=== PATIENT | male | born 1995 | race African-American/Black ===

== ENCOUNTER 2017-04-25 00:16 | Emergency (ER) | payer OTHER ==
[2017-04-25 01:08] LABS: APPEARANCE,URINE CLEAR; BILIRUBIN,URINE NEGATIVE (NEGATIVE); COLOR,URINE YELLOW; GLUCOSE, URINE NEGATIVE (NEGATIVE); KETONES,URINE NEGATIVE (NEGATIVE); LEUKOCYTE ESTERASE,URINE SMALL (NEGATIVE); NITRITE,URINE NEGATIVE (NEGATIVE); PROTEIN,URINE NEGATIVE (NEGATIVE); URINE SPECIFIC GRAVITY 1.013; UROBILINOGEN,URINE NEGATIVE mg/dL (<2.0)
--- NOTE | 2017-04-25 01:09 | ER Document Report ---
ED General - General Chief Complaint: Urinary Problem Stated Complaint: BLOOD IN URINE Time Seen by Provider: 04/25/17 00:54 Mode of Arrival: Ambulatory Information source: Patient Notes: 21-year-old male with no reported past medical history presents with complaint of blood in his urine. Patient states that just prior to arrival he was urinating when he noticed a small amount of blood in his urine. He denies prior similar symptoms, Penile discharge, foreign body into the penis, trauma to the area. He has had associated dysuria that started today. He denies any fever, chills, nausea, vomiting, abdominal pain or back pain. He is sexually active with one partner and uses condoms. He does have a history of chlamydia which was treated approximately 8 months ago. - HPI Onset: Just prior to arrival Onset/Duration: Sudden Quality of pain: No pain Severity: None Associated symptoms: None Exacerbated by: Denies Relieved by: Denies Similar symptoms previously: No - Related Data Allergies/Adverse Reactions: No Known Allergies Allergy (Unverified 04/25/17 00:17) Past Medical History - General Information source: Patient - Social History Smoking Status: Never Smoker Frequency of alcohol use: None Drug Abuse: None Lives with: Family Family History: None, Reviewed & Not Pertinent Patient has suicidal ideation: No Patient has homicidal ideation: No - Medical History Medical History: Negative Review of Systems - Review of Systems Constitutional: denies: Chills, Fever EENT: No symptoms reported Cardiovascular: No symptoms reported Respiratory: No symptoms reported Gastrointestinal: denies: Abdominal pain, Diarrhea, Nausea Genitourinary: Dysuria, Hematuria. denies: Frequency, Flank pain, Urgency, Retention Male Genitourinary: denies: Testicular pain, Penile discharge Physical Exam - Genitourinary Tenderness: Nontender Cremasteric reflex: Normal Scrotum: Normal Notes: No blood at the meatus. No penile discharge. No testicular swelling or pain. - Back Back: Normal, Nontender. No: CVA tenderness Course - Re-evaluation Re-evalutation: 04/25/17 01:08 29-year-old healthy male presents with concern of blood in his urine that he saw just prior to arrival. He denies prior similar symptoms. Upon arrival vital signs were reviewed and within normal limits. Patient is in no acute distress. Urinalysis was obtained and - Laboratory Laboratory results interpreted by me: 04/25/17 00:42 Ur Leukocyte Esterase SMALL H Discharge - Discharge Clinical Impression: UTI (urinary tract infection) Condition: Good Disposition: HOME, SELF-CARE Instructions: Urinary Tract Infection ([facility]) Prescriptions: Ciprofloxacin HCl [Cipro 500 mg Tablet] 500 mg PO BID 7 Days #14 tablet Referrals: ERIK BIRMINGHAM DO [Primary Care Provider] - Follow up as needed
[2017-04-25] MEDS ORDERED: CIPROFLOXACIN HCL 500 MG TABLET PO ONE (01:49)
[2017-04-25 02:46] VITALS: BP 119/51
[2017-04-25 03:38] LABS: CHLAM PCR DETECTED (NOT DETECT); GON PCR DETECTED (NOT DETECT)
== END 2017-04-25 02:45 | disposition home or self-care (01) ==
LOC: ER 00:16
DX: N39.0 Urinary tract infection, site not specified (principal); R31.9 Hematuria, unspecified; R30.0 Dysuria; Z86.19 Personal history of other infectious and parasitic diseases
CPT/HCPCS: 81001; 87491; 87591; 99283

== ENCOUNTER 2017-11-28 14:37 | Emergency (ER) | payer OTHER ==
[2017-11-28 14:45] VITALS: BP 127/69
--- NOTE | 2017-11-28 15:35 | ER Document Report ---
HPI - HPI Patient complains to provider of: gonorrhea and chlamydia exposure Onset: Just prior to arrival Quality of pain: No pain Pain Level: Denies Context: Patient reports to the ED with reports of gonorrhe and chlamydia exposure. Reports his partner just notified him 1 hour ago. He denies symptoms. Denies pain with void. Denies testicular pain. No complaints of fever vomiting diarrhea. Denies abdominal pain. Associated Symptoms: None Exacerbated by: Denies Relieved by: Denies Similar symptoms previously: No Recently seen / treated by doctor: No Past Medical History - General Information source: Patient - Social History Smoking Status: Unknown if Ever Smoked Cigarette use (# per day): No Frequency of alcohol use: Occasional Drug Abuse: None Family History: None, Reviewed & Not Pertinent Patient has suicidal ideation: No Patient has homicidal ideation: No - Medical History Medical History: Negative Renal/ Medical History: Denies: Hx Peritoneal Dialysis Surgical Hx: Negative Vertical Provider Document - CONSTITUTIONAL Agree With Documented VS: Yes Exam Limitations: No Limitations General Appearance: WD/WN, No Apparent Distress - INFECTION CONTROL TRAVEL OUTSIDE OF THE [place] IN LAST 30 DAYS: No - HEENT HEENT: Atraumatic, Normocephalic - NECK Neck: Supple - RESPIRATORY Respiratory: No Respiratory Distress - CARDIOVASCULAR Cardiovascular: Regular Rate - GI/ABDOMEN Gastrointestinal: Abdomen Soft, Abdomen Non-Tender - MUSCULOSKELETAL/EXTREMETIES Musculoskeletal/Extremeties: MARLENY HI - NEURO Level of Consciousness: Awake, Alert, Appropriate Motor/Sensory: No Motor Deficit - DERM Integumentary: Warm, Dry Course - Re-evaluation Re-evalutation: 11/28/17 16:24 Patient was given the option of waiting for results or being treated for gonorrhea and chlamydia. He requested to be treated for gonorrhea & chlamydia. He was given phone numbers that he can call either today or Friday to find out what the results were. He was also educated on the importance of protection when he had intercourse. He verbalized understanding to all information. Dictation of this chart was performed using voice recognition software; therefore, there may be some unintended grammatical errors. - Vital Signs Vital signs: Temp Pulse Resp BP Pulse Ox 98.2 F 59 L 18 127/69 H 100 11/28/17 14:42 11/28/17 14:42 11/28/17 14:42 11/28/17 14:42 11/28/17 14:42 Discharge - Discharge Clinical Impression: gonorrhea and chlamydia exposure Condition: Stable Disposition: HOME, SELF-CARE Instructions: Azithromycin ([facility]), Chlamydia ([facility]), Gonorrhea ([facility]), [facility], Rocephin ([facility]) Additional Instructions: *You have been used for exposure to gonorrhea and chlamydia *Your if received a dose of Zithromax and an injection of Rocephin *Contact pad at [phone] after 4 hours for results of your test or contact the culture nurse at [phone] on Friday for your results. *Follow up with your primary care provider for recheck within one week *Use protection during intercourse *Return to ED for worsening condition, changes, needs Forms: Elevated Blood Pressure, Return to Work Referrals: ERIK BIRMINGHAM DO [Primary Care Provider] - Follow up in 1 week
[2017-11-28] MEDS ORDERED: AZITHROMYCIN 250 MG TABLET PO ONE (16:03)
[2017-11-28] MEDS ORDERED: CEFTRIAXONE INJ 250 MG VIAL IM ONE (16:03)
[2017-11-28] MEDS ORDERED: LIDOCAINE 1% INJ-PF (10 MG/ML) 30 ML SDV INFIL ONE (16:03)
[2017-11-28 16:26] LABS: APPEARANCE,URINE CLEAR; BILIRUBIN,URINE NEGATIVE (NEGATIVE); COLOR,URINE YELLOW; GLUCOSE, URINE NEGATIVE (NEGATIVE); KETONES,URINE NEGATIVE (NEGATIVE); LEUKOCYTE ESTERASE,URINE NEGATIVE (NEGATIVE); NITRITE,URINE NEGATIVE (NEGATIVE); PROTEIN,URINE NEGATIVE (NEGATIVE); URINE SPECIFIC GRAVITY 1.014; UROBILINOGEN,URINE NEGATIVE mg/dL (<2.0)
[2017-11-28 17:50] LABS: CHLAM PCR DETECTED (NOT DETECT); GON PCR DETECTED (NOT DETECT)
== END 2017-11-28 16:26 | disposition home or self-care (01) ==
LOC: ER 14:37
DX: Z20.2 Contact with and (suspected) exposure to infections with a predominantly sexual mode of transmission (principal)
CPT/HCPCS: 99283; 96372; 81001; 87491; 87591; J3490; J0696

== ENCOUNTER 2018-03-07 13:07 | Emergency (ER) | payer OTHER ==
[2018-03-07] MEDS ORDERED: CEFTRIAXONE INJ 1000 MG VIAL IM ONE (13:41)
[2018-03-07] MEDS ORDERED: LIDOCAINE 1% INJ-PF (10 MG/ML) 30 ML SDV INJ ONE (13:41)
[2018-03-07] MEDS ORDERED: AZITHROMYCIN 250 MG TABLET PO ONE (13:41)
--- NOTE | 2018-03-07 13:45 | ER Document Report ---
HPI - HPI Patient complains to provider of: Chlamydia exposure Time Seen by Provider: 03/07/18 13:32 Quality of pain: No pain Pain Level: Denies Context: Patient states that his partner recently tested positive for chlamydia and he is here seeking treatment. Patient denies any penile drainage or discharge. Patient denies any other symptoms. Patient denies any abnormal skin lesions. Associated Symptoms: None Exacerbated by: Denies Relieved by: Denies Similar symptoms previously: No Recently seen / treated by doctor: No - ROS ROS below otherwise negative: Yes Systems Reviewed and Negative: Yes All other systems reviewed and negative - CONSTITUTIONAL Constitutional: DENIES: Fever - EENT EENT: DENIES: Sore Throat - GASTROINTESTINAL Gastrointestinal: DENIES: Abdominal Pain - URINARY Urinary: DENIES: Dysuria, Urgency, Frequency - MUSCULOSKELETAL Musculoskeletal: DENIES: Back Pain - DERM Skin Color: Normal Skin Problems: None Past Medical History - General Information source: Patient - Social History Smoking Status: Never Smoker Frequency of alcohol use: None Drug Abuse: None Occupation: Active duty Family History: None, Reviewed & Not Pertinent - Medical History Medical History: Negative Renal/ Medical History: Denies: Hx Peritoneal Dialysis Surgical Hx: Negative Vertical Provider Document - CONSTITUTIONAL Agree With Documented VS: Yes Exam Limitations: No Limitations General Appearance: WD/WN, No Apparent Distress - INFECTION CONTROL TRAVEL OUTSIDE OF THE [place] IN LAST 30 DAYS: No - HEENT HEENT: Atraumatic, Normocephalic - NECK Neck: Normal Inspection, Supple - RESPIRATORY Respiratory: Breath Sounds Normal, No Respiratory Distress - CARDIOVASCULAR Cardiovascular: Regular Rate, Regular Rhythm - REPRODUCTIVE Male Genitalia: Abnormal Inspection - Patient with papular skin lesion to pubic area, no surrounding erythema, no drainable abscess - BACK Back: Normal Inspection. negative: CVA Tenderness-Right, CVA Tenderness-Left - MUSCULOSKELETAL/EXTREMETIES Musculoskeletal/Extremeties: SUSSY FROM - NEURO Level of Consciousness: Awake, Alert, Appropriate Motor/Sensory: No Motor Deficit - DERM Integumentary: Warm, Dry Notes: Few scattered papular lesions to groin area within area that patient has previously shaved Course - Re-evaluation Re-evalutation: 03/07/18 13:43 Patient has findings worrisome for folliculitis as well as known exposure to chlamydia. Patient is unable to obtain a urine specimen at this time. Patient agreeable with deferring testing as he has no known exposure and just prefers to be treated empirically. - Vital Signs Vital signs: Temp Pulse Resp BP Pulse Ox 98.4 F 58 L 16 114/56 L 99 03/07/18 13:13 03/07/18 13:13 03/07/18 13:13 03/07/18 13:13 03/07/18 13:13 Discharge - Discharge Clinical Impression: Folliculitis, Exposure to chlamydia Condition: Stable Disposition: HOME, SELF-CARE Instructions: Azithromycin ([facility]), Cephalexin ([facility]), Chlamydia ([facility]), Folliculitis ([facility]), Rocephin ([facility]) Additional Instructions: Return immediately for any new or worsening symptoms Followup with your primary care provider, call tomorrow to make a followup appointment Safe sex practices Prescriptions: Cephalexin Monohydrate [Keflex 500 mg Capsule] 500 mg PO Q6H 5 Days capsule Referrals: ERIK BIRMINGHAM, [Primary Care Provider] - Follow up as needed
[2018-03-07 14:28] VITALS: BP 120/58
== END 2018-03-07 14:27 | disposition home or self-care (01) ==
LOC: ER 13:07
DX: Z20.2 Contact with and (suspected) exposure to infections with a predominantly sexual mode of transmission (principal); L73.9 Follicular disorder, unspecified
CPT/HCPCS: 99283; 96372; J3490; J0696

== ENCOUNTER 2018-07-10 07:49 | Emergency (ER) | payer OTHER ==
--- NOTE | 2018-07-10 09:45 | ER Document Report ---
Addendum entered and electronically signed by TIMO ARREOLA FNP 07/25/18 09:38: Procedures - Incision and Drainage Right Groin Type: Simple, Single mL's of anesthetic: 0 I&D procedure: Shurclens applied, Sterile dressing applied Incision Method: Incision made with needle Amount/type of drainage: Less than 1 mL/purulent Original Note: HPI - HPI Time Seen by Provider: 07/10/18 09:05 Pain Level: 2 Context: Patient is a 23-year-old male who presents emergency department with a chief complaint of an abscess to his right groin. The abscess is actually an ingrowing here. He denies any fever, body aches, chills, or any other symptoms at this time. He states that he is supposed to go on a hike today, for work, but he states that whenever he walks he gets pain from the abscess. He has had these before, but is due to shaving. He has not shaved the area which the abscess in. Denies any past medical history. Does not take any medications. - ROS Systems Reviewed and Negative: Yes All other systems reviewed and negative - CONSTITUTIONAL Constitutional: DENIES: Fever, Chills - EENT EENT: DENIES: Sore Throat - NEURO Neurology: DENIES: Headache - DERM Skin Color: Normal Skin Problems: Pustule Past Medical History - General Information source: Patient - Social History Smoking Status: Unknown if Ever Smoked Family History: None, Reviewed & Not Pertinent Patient has suicidal ideation: No Patient has homicidal ideation: No Renal/ Medical History: Denies: Hx Peritoneal Dialysis Vertical Provider Document - CONSTITUTIONAL Agree With Documented VS: Yes Exam Limitations: No Limitations General Appearance: No Apparent Distress - INFECTION CONTROL TRAVEL OUTSIDE OF THE [place] IN LAST 30 DAYS: No - HEENT HEENT: Atraumatic, Normocephalic, PERRLA - NECK Neck: Normal Inspection - RESPIRATORY Respiratory: Breath Sounds Normal, No Respiratory Distress - CARDIOVASCULAR Cardiovascular: Regular Rate, Regular Rhythm Pulses: Normal: Radial - MUSCULOSKELETAL/EXTREMETIES Musculoskeletal/Extremeties: FROM - NEURO Level of Consciousness: Awake, Alert, Appropriate - DERM Integumentary: Warm, Dry, Abscess - Very small to hair follicle Course - Re-evaluation Re-evalutation: 07/10/18 09:45 Differential diagnosis includes but normal limited to: abscess, dermoid cyst, sebaceous cyst, furnucle, or others. Based on patient's physical exam and history, this is an abscess. It was drained in the ER. There is no surrounding cellulitis. I do not believe the patient has underlying necrotizing fasciitis. Patient has risk factors for MRSA, as he is in the . Based on patient's physical exam and these factors, they will be treated with antibiotics. Verbal discharge instructions were given to the patient. They verbalized understanding. They are stable for discharge. - Vital Signs Vital signs: Temp Pulse Resp BP Pulse Ox 97.9 F 57 L 16 135/75 H 100 07/10/18 08:18 07/10/18 08:18 07/10/18 08:18 07/10/18 08:18 07/10/18 08:18 Discharge - Discharge Clinical Impression: Abscess Condition: Stable Disposition: HOME, SELF-CARE Instructions: Abscess ([facility]), Post Incision and Drainage, Trimethoprim-Sulfa ([facility]) Additional Instructions: You were seen for an abscess that required drainage. Please clean this area with soap and water twice daily and apply a topical antibiotic. Dress the area after each cleaning. Please take all your antibiotics as prescribed. Even if you start to feel better, please take your medication until it is gone. Please return if you develop fever, vomiting, the pain at the site worsens, you notice spreading redness from the area, or you have any other symptoms that are concerning to you. Prescriptions: Sulfamethoxazole/Trimethoprim [Bactrim Ds Tablet] 1 each PO BID 7 Days #14 tablet Forms: Return to Work
[2018-07-10 09:55] VITALS: BP 124/70
== END 2018-07-10 09:56 | disposition home or self-care (01) ==
LOC: ER 07:49
DX: L02.214 Cutaneous abscess of groin (principal)
CPT/HCPCS: 99282

== ENCOUNTER 2019-06-15 10:00 | Emergency (ER) | payer OTHER ==
--- NOTE | 2019-06-15 11:24 | ER Document Report ---
ED Eye Complaint - General Chief Complaint: Eye complaint Stated Complaint: EYE PROBLEM Time Seen by Provider: 06/15/19 10:39 Notes: CHIEF COMPLAINT: Eye discharge and facial congestion for 3 days HPI: 23-year-old male presenting to the emergency department complaining of bilateral eye discharge and itching over the last 3 days with facial congestion. Denies sore throat. Denies cough. Denies fever. Has been using Claritin-D ROS: See HPI - all other systems were reviewed and are otherwise negative Constitutional: no fever Eyes: + drainage, no blurred vision ENT: + Runny nose, no sore throat Cardiovascular: no chest pain Resp: no SOB, no cough GI: no vomiting, no diarrhea, no abdominal pain : no dysuria Integumentary: no rash Allergy: no hives Musculoskeletal: no extremity pain or swelling Neurological: no numbness/tingling, no weakness MEDICATIONS: I agree with the patient medications as charted by the RN. ALLERGIES: I agree with the allergies as charted by the RN. PAST MEDICAL HISTORY/PAST SURGICAL HISTORY: Reviewed and agree as charted by RN. SOCIAL HISTORY: Reviewed and agree as charted by RN. FAMILY HISTORY: No significant familial comorbid conditions directly related to patient complaint EXAM: Reviewed vital signs as charted by RN. CONSTITUTIONAL: Alert and oriented and responds appropriately to questions. Well-appearing; well-nourished HEAD: Normocephalic; atraumatic EYES: PERRL; Conjunctivae clear, sclerae non-icteric. Funduscopic exam does not reveal evidence of disc edema or hemorrhage. No foreign body under the upper or lower lids. There is no visible discharge at this time ENT: normal nose; positive clear rhinorrhea; moist mucous membranes; pharynx without lesions noted, no uvula edema or deviation, no tonsillar hypertrophy, phonation normal NECK: Supple without meningismus; non-tender; no cervical lymphadenopathy, no masses CARD: RRR; no murmurs, no clicks, no rubs, no gallops; symmetric distal pulses RESP: Normal chest excursion without splinting or tachypnea; breath sounds clear and equal bilaterally; no wheezes, no rhonchi, no rales, pulse oximetry 98% on room air not hypoxic ABD/GI: Normal bowel sounds; non-distended; soft, non-tender, no rebound, no guarding; no palpable organomegaly or masses. BACK: The back appears normal and is non-tender to palpation, there is no CVA tenderness EXT: Normal ROM in all joints; no cyanosis, no effusions, no edema SKIN: Normal color for age and race; warm; dry; good turgor; no acute lesions noted NEURO: Moves all extremities equally; Motor and sensory function intact PSYCH: The patient's mood and manner are appropriate. Grooming and personal hygiene are appropriate. MDM: 23-year-old male with eye discharge and itching for 3 days with nasal and facial congestion. Has been using Claritin-D will continue him on this. We will add Flonase, Polytrim drops for likely allergic conjunctivitis TRAVEL OUTSIDE OF THE [place] IN LAST 30 DAYS: No - Related Data Allergies/Adverse Reactions: No Known Allergies Allergy (Verified 07/10/18 07:51) Past Medical History - Social History Smoking Status: Current Some Day Smoker Family History: None, Reviewed & Not Pertinent Patient has homicidal ideation: No Renal/ Medical History: Denies: Hx Peritoneal Dialysis Physical Exam - Vital signs Vitals: Temp Pulse Resp BP Pulse Ox 97.5 F 72 14 127/60 H 99 06/15/19 10:04 06/15/19 10:04 06/15/19 10:04 06/15/19 10:04 06/15/19 10:04 Course - Vital Signs Vital signs: Temp Pulse Resp BP Pulse Ox 97.5 F 72 14 127/60 H 99 06/15/19 10:35 06/15/19 10:04 06/15/19 10:04 06/15/19 10:04 06/15/19 10:04 Discharge - Discharge Clinical Impression: Acute rhinitis Allergic conjunctivitis Qualifiers: Laterality: bilateral Qualified Code(s): H10.13 - Acute atopic conjunctivitis, bilateral Condition: Stable Disposition: HOME, SELF-CARE Additional Instructions: Continue to use Claritin-D daily. Use the Flonase twice daily as prescribed. Use the eyedrops as prescribed. Follow-up with primary care provider for reevaluation of symptoms call for appointment Prescriptions: Fluticasone Propionate [Flonase Nasal [place] 50 Mcg/[place] 16 gm] 2 sprays NASL Q12 #1 inhaler Polymyxin B Sulf/Trimethoprim [Polytrim Eye Drops] 1 drop OU Q4H 5 Days #10 ml Referrals: PAN PAREDES MD [COMMUNITY BASED STAFF] - Follow up as needed
[2019-06-15 11:42] VITALS: BP 135/64
== END 2019-06-15 11:43 | disposition home or self-care (01) ==
LOC: ER 10:00
DX: H10.13 Acute atopic conjunctivitis, bilateral (principal); J30.2 Other seasonal allergic rhinitis; R09.81 Nasal congestion; J34.89 Other specified disorders of nose and nasal sinuses; F17.200 Nicotine dependence, unspecified, uncomplicated
CPT/HCPCS: 99282